=== PATIENT | female | born 1935 | race Caucasian/White ===

== ENCOUNTER 2018-09-04 14:21 | Inpatient (IN) | payer OTHER ==
[~2018-09-04] VITALS: Ht 160 cm; Wt 39.9 kg
[~2018-09-04 14:21] MED LIST: AMLO10TA80 PO; CHOL20004 PO; Fish Oil PO; LEVO75TA7 PO; LOSA50TA20 PO; OMEP20CA10 PO; PARO-41 PO; RISP0.5T19 MT; hydrocodone PO
[2018-09-04] MEDS ORDERED: PIPERACILLIN/TAZ 3.375G PREMIX 50 ML IV ONE (14:45)
[2018-09-04] MEDS ORDERED: VANCOMYCIN 1 G PREMIX 200 ML IV ONE (14:45)
[2018-09-04] MEDS ORDERED: SODIUM CHLORIDE 0.9% 1000ML BAG (SEPSIS BOLUS) IV ONE (14:45)
[2018-09-04 15:29] LABS: HEMATOCRIT. 28.1 % (36.0-48.0); MEAN CORPUSCULAR HEMOGLOBIN 22.4 pg (28.0-32.0); MEAN CORPUSCULAR VOLUME 70.3 fL (81.0-99.0); MEAN PLATELET VOLUME 8.4 fl (7.4-10.4); PLATELET 361 x1000/uL (130-400); RED BLOOD CELL COUNT 3.99 mill/uL (4.2-5.4); RED CELL DISTRIBUTION WIDTH 23.7 % (11.6-14.6)
[2018-09-04 15:35] LABS: CHLORIDE 100 mEq/L (98-107); INR 1.1; PROTHROMBIN TIME 10.7 sec (9.1-11.1)
[2018-09-04 16:11] LABS: PLATELET ESTIMATE NORMAL
[2018-09-04 16:13] LABS: T4 FREE 1.39 ng/dL (0.76-1.46)
[2018-09-04 18:00] VITALS: BP 128/72
[2018-09-04 20:00] VITALS: BP 109/56
[2018-09-04 22:00] VITALS: BP 150/73
[2018-09-04] MEDS ORDERED: CLONIDINE 0.1MG TABLET PO PRN (22:15)
[2018-09-04] MEDS ORDERED: MAGNESIUM/ALUMINUM HYDROXIDE/SIMETHICONE 30ML UDC PO PRN (22:15)
[2018-09-04] MEDS ORDERED: IPRATROPIUM/ALBUTEROL 0.5-3(2.5)MG/3ML NEB INH PRN (22:15)
[2018-09-04] MEDS ORDERED: GUAIFENESIN 200MG/10ML SUGAR FREE UDC PO PRN (22:15)
[2018-09-04] MEDS ORDERED: ACETAMINOPHEN 650MG SUPP PR PRN (22:15)
[2018-09-04] MEDS ORDERED: DOCUSATE SODIUM 100MG CAPSULE PO PRN (22:15)
[2018-09-04] MEDS ORDERED: DIPHENHYDRAMINE 50MG/ML VIAL IV PRN (22:15)
[2018-09-04] MEDS ORDERED: ACETAMINOPHEN 650MG/20.3ML UDC GT PRN (22:15)
[2018-09-04] MEDS ORDERED: ACETAMINOPHEN 325MG TABLET PO PRN (22:15)
[2018-09-04] MEDS ORDERED: ONDANSETRON HCL 4MG/2ML INJ IV PRN (22:15)
[2018-09-04] MEDS ORDERED: NA PHOS,M-B/NA PHOS,DI-BA ENEMA 118ML PR PRN (22:15)
[2018-09-04] MEDS ORDERED: RISPERIDONE 0.5MG TABLET PO SCH (23:00)
[2018-09-04] MEDS ORDERED: SODIUM CHLORIDE 0.45% 1,000 ML IV SCH (23:00)
[2018-09-05] VITALS (17 sets, daily range): BP systolic 100–147; BP diastolic 35–75
[2018-09-05 00:41] LABS: AMYLASE 82 IU/L (25-115)
[2018-09-05] MEDS ORDERED: SODIUM CHLORIDE 0.9% INJ 3ML FLUSH IVF SCH (06:00)
[2018-09-05 06:38] LABS: BASOPHILS % 0.8 % (0.0-2.0); EOSINOPHILS % 0.4 % (0.0-5.0); LYMPHOCYTES % 21.7 % (20.0-50.0); MEAN CORPUSCULAR HEMOGLOBIN 22.8 pg (28.0-32.0); MEAN CORPUSCULAR VOLUME 71.1 fL (81.0-99.0); MEAN PLATELET VOLUME 8.6 fl (7.4-10.4); MONOCYTES % 7.5 % (2.0-8.0); NEUTROPHILS % 69.6 % (40.0-76.0); PLATELET 292 x1000/uL (130-400); RED BLOOD CELL COUNT 3.51 mill/uL (4.2-5.4); RED CELL DISTRIBUTION WIDTH 23.5 % (11.6-14.6)
[2018-09-05 06:57] LABS: CHLORIDE 106 mEq/L (98-107)
[2018-09-05 07:17] LABS: LDL CHOLESTEROL 39 mg/dL (5-100)
[2018-09-05 07:18] LABS: CREATINE KINASE 12 IU/L (26-192)
[2018-09-05 07:19] LABS: HDL CHOLESTEROL 80 mg/dL (40-59)
[2018-09-05 07:22] LABS: CREATINE KINASE MB FRACTION 1.7 ng/mL (0.5-3.6)
[2018-09-05] MEDS ORDERED: LEVOTHYROXINE SODIUM 75MCG TABLET PO SCH (07:30)
[2018-09-05] MEDS ORDERED: OMEPRAZOLE 20MG CAPSULE EXTENDED RELEASE PO SCH (07:30)
[2018-09-05] MEDS ORDERED: MEDICATION NOT ON FORMULARY EA (Losartan Potassium 50 MG) PO SCH (09:00)
[2018-09-05] MEDS ORDERED: PAROXETINE HCL 20 MG PO SCH (09:00)
[2018-09-05] MEDS ORDERED: CHOLECALCIFEROL (D3) 1000 UNIT TABLET PO SCH (09:00)
[2018-09-05] MEDS ORDERED: LOSARTAN POTASSIUM 50 MG TABLET PO SCH (09:00)
[2018-09-05] MEDS ORDERED: AMLODIPINE 10MG TABLET PO SCH (09:00)
[2018-09-05] MEDS ORDERED: MEDICATION NOT ON FORMULARY EA (Cholecalciferol (Vitamin D) 2,000 UNIT) PO SCH (09:00)
[2018-09-05] MEDS ORDERED: PAROXETINE HCL 10MG TABLET PO SCH (09:00)
[2018-09-05 15:56] LABS: CREATINE KINASE 21 IU/L (26-192); CREATINE KINASE MB FRACTION 1.9 ng/mL (0.5-3.6)
[2018-09-05] MEDS ORDERED: RISPERIDONE 0.5MG TABLET PO SCH (21:00)
== END 2018-09-05 18:10 | disposition left against medical advice (07) | DRG 640 ==
LOC: ER 14:21 → 5EST 16:26 → EDBEDREQ 16:29 → ENRESERV 16:50
PROVIDERS: ADMIT Family Medicine; ATTEND Family Medicine
DX: E86.0 Dehydration (principal); E43 Unspecified severe protein-calorie malnutrition; Z68.1 Body mass index [BMI] 19.9 or less, adult; I95.9 Hypotension, unspecified; E87.1 Hypo-osmolality and hyponatremia; E03.9 Hypothyroidism, unspecified; H91.90 Unspecified hearing loss, unspecified ear; I73.9 Peripheral vascular disease, unspecified; F32.9 Major depressive disorder, single episode, unspecified; I10 Essential (primary) hypertension; Z53.21 Procedure and treatment not carried out due to patient leaving prior to being seen by health care provider; J44.9 Chronic obstructive pulmonary disease, unspecified; K21.9 Gastro-esophageal reflux disease without esophagitis; M34.9 Systemic sclerosis, unspecified; R62.7 Adult failure to thrive; Z89.431 Acquired absence of right foot; Z88.2 Allergy status to sulfonamides; Z79.899 Other long term (current) drug therapy
CPT/HCPCS: 36415; 71045; 74018; 80061; 82150; 82550; 82553; 83605; 84145; 84439; 84443; 84480; 84484; 93005; 96365; 96368; 97162; 97530; 99291; A6261; J2543; J3370; J7030

== ENCOUNTER 2019-06-27 19:41 | Inpatient (IN) | payer OTHER ==
[~2019-06-27] VITALS: Ht 152.4 cm; Wt 42.0 kg
[~2019-06-27 19:41] MED LIST changes: -LOSA50TA20 PO; +LOSA50TA41 PO; -OMEP20CA10 PO; +OMEP20CA5 PO
[2019-06-27] MEDS ORDERED: IPRATROPIUM BROMIDE (0.02%) 0.5MG/2.5ML NEB HHN STA (20:07)
[2019-06-27] MEDS ORDERED: METHYLPREDNISOLONE SOD SUCC 125 MG/2 ML VIAL IV STA (20:07)
[2019-06-27] MEDS ORDERED: ALBUTEROL (0.083%) 2.5MG/3ML NEB HHN STA (20:07)
[2019-06-27] MEDS ORDERED: SODIUM CHLORIDE 0.9% 1000ML BAG (SEPSIS BOLUS) IV ONE (20:15)
[2019-06-27] MEDS ORDERED: LEVOFLOXACIN 750MG PREMIX 150 ML IV ONE (20:15)
[2019-06-27 20:37] LABS: CHLORIDE 96 mEq/L (98-107)
[2019-06-27 20:40] LABS: HEMATOCRIT. 29.4 % (36.0-48.0); HEMOGLOBIN. 9.4 g/dL (12.0-16.0); MEAN CORPUSCULAR HEMOGLOBIN 20.8 pg (28.0-32.0); MEAN CORPUSCULAR VOLUME 65.4 fL (81.0-99.0); MEAN PLATELET VOLUME 9.1 fl (7.4-10.4); PLATELET 339 x1000/uL (130-400); RED BLOOD CELL COUNT 4.49 mill/uL (4.2-5.4); RED CELL DISTRIBUTION WIDTH 21.7 % (11.6-14.6)
[2019-06-27 20:41] LABS: INR 0.9; PARTIAL THROMBOPLASTIN TIME 24.3 sec (23.4-31.0); PROTHROMBIN TIME 9.7 sec (9.6-11.0)
[2019-06-27] MEDS ORDERED: SODIUM POLYSTYRENE SULFONATE 15 G/60 ML BOT PO ONE (21:15)
[2019-06-27] MEDS ORDERED: DEXTROSE 50% WATER 50ML SYRINGE IV ONE (21:15)
[2019-06-27] MEDS ORDERED: INSULIN REGULAR (HUMULIN R) 300UNITS/3ML IV ONE (21:15)
[2019-06-27] MEDS ORDERED: SODIUM BICARBONATE 8.4% 1 MEQ/ML 50ML SYR IV ONE (21:15)
[2019-06-27 21:27] LABS: PLATELET ESTIMATE NORMAL
[2019-06-27 21:55] LABS: BG BASE EXCESS -8.9 mmol/L (-2.0-2.0); BG CARBOXYHEMOGLOBIN 0.4 % (0.5-1.5); BG DEOXYHEMOGLOBIN 0.8 % (0.0-5.0); BG FRACTION INSPIRED OXYGEN 28; BG HCO3 ACT 15.4 mmol/L (22.0-26.0); BG METHEMOGLOBIN 0.3 % (0.0-1.5); BG OXYGEN SATURATION 99.2 % (92.0-98.5); BG OXYHEMOGLOBIN 98.5 % (94.0-97.0); BG PCO2 27.9 mmHg (35.0-45.0); BG PH 7.361 (7.350-7.450); BG PO2 162.5 mmHg (75.0-100.0); BG SAMPLE SITE LEFT BRACHIAL; BG TOTAL HEMOGLOBIN 8.5 g/dL (12.0-18.0); BG VENT MODE MASK - BIPAP; BG VENT RATE 16 set
[2019-06-27] MEDS ORDERED: LEVO50TA8 MT (22:35)
[2019-06-27] MEDS ORDERED: MIRT15TA6 PO (22:35)
[2019-06-27] MEDS ORDERED: CYAN-33 MT (22:39)
[2019-06-27] MEDS: DEXT 5%/0.45% NACL 1000ML 1,000 ML IV SCH (23:27)
[2019-06-27] MEDS ORDERED: CLONIDINE 0.1MG TABLET PO PRN (23:30)
[2019-06-27] MEDS ORDERED: LORAZEPAM 0.5MG TABLET PO PRN (23:30)
[2019-06-27] MEDS ORDERED: DIPHENHYDRAMINE 50MG/ML VIAL IV PRN (23:30)
[2019-06-27] MEDS ORDERED: ONDANSETRON HCL 4MG/2ML INJ IV PRN (23:30)
[2019-06-27] MEDS ORDERED: ACETAMINOPHEN 325MG TABLET PO PRN (23:30)
[2019-06-27] MEDS ORDERED: IPRATROPIUM/ALBUTEROL 0.5-3(2.5)MG/3ML NEB NEB PRN (23:30)
[2019-06-28] VITALS (11 sets, daily range): BP systolic 130–172; BP diastolic 58–94
[2019-06-28] MEDS: HYDRALAZINE 20MG/ML VIAL IV PRN (02:46)
[2019-06-28] MEDS: IPRATROPIUM/ALBUTEROL 0.5-3(2.5)MG/3ML NEB HHN SCH ×5 (05:03→21:21)
[2019-06-28] MEDS: METHYLPREDNISOLONE SOD SUCC 125 MG/2 ML VIAL IV SCH ×3 (05:55→22:10)
[2019-06-28] MEDS: LEVOTHYROXINE SODIUM 75MCG TABLET PO SCH (06:25)
[2019-06-28 06:43] LABS: HEMATOCRIT. 25.4 % (36.0-48.0); HEMOGLOBIN. 8.1 g/dL (12.0-16.0); MEAN CORPUSCULAR HEMOGLOBIN 20.9 pg (28.0-32.0); MEAN CORPUSCULAR VOLUME 65.8 fL (81.0-99.0); MEAN PLATELET VOLUME 9.1 fl (7.4-10.4); PLATELET 267 x1000/uL (130-400); RED BLOOD CELL COUNT 3.86 mill/uL (4.2-5.4); RED CELL DISTRIBUTION WIDTH 21.5 % (11.6-14.6)
[2019-06-28 06:45] LABS: CHLORIDE 104 mEq/L (98-107)
[2019-06-28 06:56] LABS: T4 FREE 0.99 ng/dL (0.76-1.46)
[2019-06-28 06:58] LABS: PHOSPHORUS 2.8 mg/dL (2.5-4.9)
[2019-06-28 09:11] LABS: PLATELET ESTIMATE NORMAL
[2019-06-28] MEDS: FAMOTIDINE 20MG/2ML VIAL IV SCH (09:43)
[2019-06-28] MEDS: PAROXETINE HCL 10MG TABLET PO SCH (09:43)
[2019-06-28] MEDS: AMLODIPINE 10MG TABLET PO SCH (09:48)
[2019-06-28] MEDS: LOSARTAN POTASSIUM 50 MG TABLET PO SCH (09:48)
[2019-06-28] MEDS: ENOXAPARIN 30MG/0.3ML SYR SUBCUT SCH (09:49)
[2019-06-28] MEDS: DEXT 5%/0.45% NACL 1000ML 1,000 ML IV SCH ×2 (14:27→21:26)
[2019-06-28] MEDS ORDERED: MAGNESIUM 2 G PREMIX 50 ML IV NR (15:30)
[2019-06-28 16:46] LABS: CLARITY URINE CLEAR (CLEAR); COLOR URINE YELLOW (YELLOW); KETONES URINE NEGATIVE (NEGATIVE); LEUKOCYTE ESTERASE URINE NEGATIVE (NEGATIVE); NITRITE URINE NEGATIVE (NEGATIVE); OCCULT BLOOD URINE NEGATIVE (NEGATIVE); PROTEIN URINE NEGATIVE (NEGATIVE); SPECIFIC GRAVITY URINE 1.007 (1.005-1.030); UROBILINOGEN URINE 0.2 E.U./dL (0.2-1.0)
[2019-06-28 18:33] LABS: TOTAL IRON BINDING CAPACITY 297 ug/dL (250-450)
[2019-06-28] MEDS ORDERED: LEVOFLOXACIN 500MG PREMIX 100 ML IV SCH (20:00)
[2019-06-28] MEDS: IRON SUCROSE COMPLEX 100 MG/5 ML ML IV SCH (22:10)
[2019-06-29] VITALS (13 sets, daily range): BP systolic 99–172; BP diastolic 45–105
[2019-06-29] MEDS: IPRATROPIUM/ALBUTEROL 0.5-3(2.5)MG/3ML NEB HHN SCH ×6 (01:23→21:15)
[2019-06-29] MEDS: DEXT 5%/0.45% NACL 1000ML 1,000 ML IV SCH ×2 (05:27→14:36)
[2019-06-29] MEDS: LEVOTHYROXINE SODIUM 75MCG TABLET PO SCH (06:22)
[2019-06-29] MEDS: METHYLPREDNISOLONE SOD SUCC 125 MG/2 ML VIAL IV SCH ×2 (06:26→14:36)
[2019-06-29 06:52] LABS: HEMATOCRIT. 27.7 % (36.0-48.0); HEMOGLOBIN. 8.5 g/dL (12.0-16.0); MEAN CORPUSCULAR HEMOGLOBIN 20.5 pg (28.0-32.0); MEAN CORPUSCULAR VOLUME 66.7 fL (81.0-99.0); MEAN PLATELET VOLUME 9.4 fl (7.4-10.4); PLATELET 287 x1000/uL (130-400); RED BLOOD CELL COUNT 4.14 mill/uL (4.2-5.4); RED CELL DISTRIBUTION WIDTH 21.3 % (11.6-14.6)
[2019-06-29 07:58] LABS: CHLORIDE 104 mEq/L (98-107)
[2019-06-29 08:06] LABS: VITAMIN B12 SERUM > 2000.0 pg/mL (211-911)
[2019-06-29] MEDS: IRON SUCROSE COMPLEX 100 MG/5 ML ML IV SCH (08:47)
[2019-06-29] MEDS: HYDRALAZINE 20MG/ML VIAL IV PRN (08:48)
[2019-06-29] MEDS: ENOXAPARIN 30MG/0.3ML SYR SUBCUT SCH (08:48)
[2019-06-29] MEDS: PAROXETINE HCL 10MG TABLET PO SCH (08:49)
[2019-06-29] MEDS: LOSARTAN POTASSIUM 50 MG TABLET PO SCH (08:49)
[2019-06-29] MEDS: AMLODIPINE 10MG TABLET PO SCH (08:49)
[2019-06-29] MEDS: FAMOTIDINE 20MG/2ML VIAL IV SCH (08:49)
[2019-06-29] MEDS ORDERED: MAGNESIUM 2 G PREMIX 50 ML IV NR (10:00)
[2019-06-29 13:25] LABS: PLATELET ESTIMATE NORMAL
[2019-06-29] MEDS ORDERED: LEVOFLOXACIN 250MG PREMIX 50 ML IV SCH (20:00)
[2019-06-29] MEDS ORDERED: METHYLPREDNISOLONE SOD SUCC 40 MG/ML VIAL IV SCH (22:00)
== END 2019-06-29 20:57 | disposition short-term general hospital (02) | DRG 871 ==
LOC: ER 19:41 → 3WST 21:38 → EDBEDREQTM 21:41 → EDBEDREQ 21:41 → ENRESERV 06-28 01:18
PROVIDERS: ADMIT Internal Medicine; ATTEND Internal Medicine
PROC: 5A09357 Assistance with Respiratory Ventilation, Less than 24 Consecutive Hours, Continuous Positive Airway Pressure (ICD-10-PCS; 2019-06-27)
PROC: 02HV33Z Insertion of Infusion Device into Superior Vena Cava, Percutaneous Approach (ICD-10-PCS; principal; 2019-06-28)
PROC: B548ZZA Ultrasonography of Superior Vena Cava, Guidance (ICD-10-PCS; 2019-06-28)
PROC: 4A00X4Z Measurement of Central Nervous Electrical Activity, External Approach (ICD-10-PCS; 2019-06-29)
DX: A41.9 Sepsis, unspecified organism (principal); J96.91 Respiratory failure, unspecified with hypoxia; G93.41 Metabolic encephalopathy; J44.1 Chronic obstructive pulmonary disease with (acute) exacerbation; N17.9 Acute kidney failure, unspecified; Z68.1 Body mass index [BMI] 19.9 or less, adult; E87.5 Hyperkalemia; R62.7 Adult failure to thrive; I10 Essential (primary) hypertension; D50.9 Iron deficiency anemia, unspecified; F32.9 Major depressive disorder, single episode, unspecified; M19.90 Unspecified osteoarthritis, unspecified site; E03.9 Hypothyroidism, unspecified; E83.42 Hypomagnesemia; M06.9 Rheumatoid arthritis, unspecified; Z88.2 Allergy status to sulfonamides; Z79.899 Other long term (current) drug therapy; Z89.431 Acquired absence of right foot
CPT/HCPCS: 36415; 36600; 70551; 71045; 76937; 81003; 82375; 82533; 82607; 82805; 83540; 83550; 83605; 83735; 84100; 84145; 84439; 84443; 84484; 92610; 93005; 94640; 94660; 95816; 96374; 96375; 99291; C1725; C1769; J0360; J1650; J1815; J1956; J2930; J3475; J3490; J7030; J7611; J7620; A4315